=== PATIENT | female | born 2000 | race Hispanic/Latino ===

== ENCOUNTER 2024-02-11 19:53 | Emergency (ER) | payer OTHER, SELFPAY ==
[2024-02-11 20:03] VITALS: BP 141/72; PULSE 84; RESP 16; TEMP 36.9; O2SAT 98; BMI 23.6
[2024-02-11 20:53] LABS: Bacteria Urine Few (2-10); Culture Indicated Urine Specimen Cultured; RBC Urine 1-5/HPF (0-5/HPF); Squamous Epithelial Cell Urine 0-1 /HPF (0-5/HPF); Urine Volume 10mL (spun); WBC Urine 1-5/HPF (0-5/HPF)
[2024-02-11 21:17] LABS: Pregnancy Test Urine Negative (Negative)
--- NOTE | 2024-02-11 22:33 | ED.GENADULT ---
HPI - General Adult General Chief complaint: Urogenital-Female Stated complaint: pain/burning with urination, diarrhea Time Seen by Provider: 02/11/24 20:18 Source: patient Mode of arrival: Ambulatory History of Present Illness HPI narrative: Patient is a 23-year-old female he was here for evaluation of less than 24 hours of urinary frequency, urgency and pain and burning. She also reports diarrhea. No fevers. No vaginal bleeding. No recent travel. No vomiting. Related Data Previous Rx's Medication Instructions Recorded nitrofurantoin 100 mg PO Q12H 5 days #10 caps 02/11/24 monohydrate/macrocrystals 100 mg capsule (Macrobid) phenazopyridine 100 mg tablet 100 mg PO TID PRN pain 6 doses #6 02/11/24 (Pyridium) tabs Allergies Allergy/AdvReac Type Severity Reaction Status Date / Time No Known Drug Allergies Allergy Verified 02/11/24 20:03 Review of Systems Review of Systems Narrative: See HPI Patient History Social History Smoking Status: Never smoker Smoking Status: Never smoker alcohol intake frequency: holidays/special occasions only Substance Use Type: does not use Exam Initial Vital Signs Initial Vital Signs: Vital Signs Temperature 98.4 F 02/11/24 20:03 Pulse Rate 84 02/11/24 20:03 Respiratory Rate 16 02/11/24 20:03 Blood Pressure 141/72 H 02/11/24 20:03 Pulse Oximetry 98 02/11/24 20:03 Oxygen Delivery Method Room Air 02/11/24 20:03 HENMT Head: normal to inspection and normocephalic Resp Effort & Inspection: normal respiratory effort Cardio Rate: regular rate Skin General: no rashes or lesions noted Neuro General: patient alert, patient awake and moves all extremities Extrem General: capillary refill normal Course Orders Ordered: ED Orders 02/11/24 20:10 Urine Microscopic Stat 02/11/24 20:53 Test Urine Stat Discontinued Medications Nitrofurantoin Macrocrystals (Nitrofurantoin Er 100 Mg Capsule) 100 mg PO NOW ONE Stop: 02/11/24 22:34 Last Admin: 02/11/24 22:36 Dose: 100 mg Documented By: JOHN Phenazopyridine HCl (Phenazopyridine 100 Mg Tablet) 100 mg PO NOW ONE Stop: 02/11/24 22:34 Last Admin: 02/11/24 22:36 Dose: 100 mg Documented By: JOHN Vital Signs Vital signs: Vital Signs - 8 hr 02/11/24 20:03 Temperature 98.4 F Pulse Rate 84 Respiratory Rate 16 Blood Pressure 141/72 H Pulse Oximetry 98 Oxygen Delivery Method Room Air Medical Decision Making Lab Data Lab results reviewed: Yes I reviewed the patient's lab results. Labs: Lab Results 02/11/24 Range/Units 20:10 Urine RBC 1-5/hpf (0-5/HPF) Urine WBC 1-5/hpf (0-5/HPF) Ur Squamous Epith Cells 0-1 /hpf (0-5/HPF) Urine Bacteria Few (2-10) H (None) Ur Culture Indicated? Specimen cultured Vol Urine Centrifuged 10ml (spun) Urine Test Negative (Negative) Urine Dip Bedside Urine Glucose Negative Bedside Urine Bilirubin - Negative Bedside Urine Ketone - Negative Urine Specific [place] 1 Bedside Urine Occult Blood +++ Bedside Urine pH 7 Bedside Urine Protein - Negative Bedside Urine Urobilinogen - Negative Bedside Urine Nitrite - Negative Bedside Urine Leukocytes ++ 125 Esterase Point of care testing: Urine Dip Bedside Urine Glucose Negative Bedside Urine Bilirubin - Negative Bedside Urine Ketone - Negative Urine Specific [place] 1 Bedside Urine Occult Blood +++ Bedside Urine pH 7 Bedside Urine Protein - Negative Bedside Urine Urobilinogen - Negative Bedside Urine Nitrite - Negative Bedside Urine Leukocytes ++ 125 Esterase MDM Narrative Medical decision making narrative: History and physical exam are consistent with a urinary tract infection. Low suspicion for pyelonephritis. Tolerating oral intake. Afebrile. Benign exam. Patient was given 1st dose of antibiotics here in the emergency department and a prescription was sent to pharmacy of her choice. She was given return precautions. She expressed understanding and agreement with plan. Discharge Plan Departure Patient Disposition: Home Clinical Impression: Urinary tract infection Instructions: DI for Urinary Tract Infection (UTI) Activity Restrictions/Additional Instructions: a prescription for antibiotics was sent to the pharmacy of your choice. Please start taking it as directed. There was a urine culture pending at the time of your discharge and we will contact you if we need to change antibiotics based on this. Return to the emergency department for new or worsening symptoms. Prescriptions: New nitrofurantoin monohyd/m-cryst [Macrobid] 100 mg capsule 100 mg PO Q12H 5 Days Qty: 10 0RF Rx Instructions: must administer with a meal/food phenazopyridine [Pyridium] 100 mg tablet 100 mg PO TID PRN (Reason: pain) Qty: 6 0RF Stand Alone Forms: Patient Portal/API
[2024-02-11] MEDS: NITROFURANTOIN ER 100 MG CAPSULE PO (22:36)
[2024-02-11] MEDS: PHENAZOPYRIDINE 100 MG TABLET PO (22:36)
== END 2024-02-11 22:39 | disposition home or self-care (01) ==
PROVIDERS: Emergency Provider Emergency Medicine
DX: N39.0 Urinary tract infection, site not specified (principal)
CPT/HCPCS: 81003; 81015; 81025; 87077; 87086; 87186; 99283

== ENCOUNTER 2024-05-27 17:25 | Emergency (ER) | payer OTHER, SELFPAY ==
[2024-05-27 17:37] VITALS: BP 106/68; PULSE 87; RESP 16; TEMP 36.8; O2SAT 99; BMI 23.2
--- NOTE | 2024-05-27 18:13 | ED.SKABFB ---
HPI - Skin/Abscess/Foreign Bdy General Chief complaint: Skin/Abscess/Foreign Body Stated complaint: weeping rash on face Time Seen by Provider: 05/27/24 17:56 Source: patient Mode of arrival: Ambulatory History of Present Illness HPI narrative: Patient is a 23-year-old female who is here for evaluation of a rash located on her upper lip been in front of her left ear. She does have a history of eczema. She has not had an ex mild break in quite some time. She states this feels different from her prior eczema but she has been using cortisone cream without any improvement. She also reports some blistering on her fingers. No problems breathing. Related Data Previous Rx's Medication Instructions Recorded phenazopyridine 100 mg tablet 100 mg PO TID PRN pain 6 doses #6 02/11/24 (Pyridium) tabs cephalexin 500 mg capsule 500 mg PO QID 5 days #20 caps 05/27/24 Allergies Allergy/AdvReac Type Severity Reaction Status Date / Time No Known Drug Allergies Allergy Verified 02/11/24 20:03 Review of Systems Review of Systems Narrative: See HPI Patient History Social History Smoking Status: Never smoker Smoking Status: Never smoker alcohol intake frequency: holidays/special occasions only Exam Initial Vital Signs Initial Vital Signs: Vital Signs Temperature 98.3 F 05/27/24 17:37 Pulse Rate 87 05/27/24 17:37 Respiratory Rate 16 05/27/24 17:37 Blood Pressure 106/68 05/27/24 17:37 Pulse Oximetry 99 05/27/24 17:37 Oxygen Delivery Method Room Air 05/27/24 17:37 HENMT Ears: TM normal on the right, TM normal on the left and EAC's normal Mouth: oral mucosae normal and moist mucous membranes Skin Other: Patient does have what appears to be a rash on her upper lip and in front of her left ear. No vesicles. Low suspicion for zoster. Does have surrounding erythema. No pustules. Course Vital Signs Vital signs: Vital Signs - 8 hr 05/27/24 17:37 05/27/24 18:21 Temperature 98.3 F Pulse Rate 87 Respiratory Rate 16 16 Blood Pressure 106/68 Pulse Oximetry 99 Oxygen Delivery Method Room Air MDM - Skin/Abscess/Foreign Bdy MDM Narrative Medical decision making narrative: Based on her exam today I have low suspicion that this is zoster. Low suspicion that this is eczema. Most likely topical infection. She will stop using the hydrocortisone. I recommended that she try topical antibiotic ointments such as Neosporin or bacitracin. She was given a prescription for Keflex however she was going to hold on filling this medicine for the next 48 hours. If her symptoms are not improving or if they are worsening during this time that she will fill the prescription and start taking as directed. She was given return precautions. She expressed understanding and agreement with plan. Discharge Plan Departure Patient Disposition: Home Clinical Impression: Cellulitis Instructions: DI for Cellulitis -- Adult Activity Restrictions/Additional Instructions: I would stop using the hydrocortisone cream and start using a topical antibiotic ointment such as bacitracin or Neosporin. This can be purchased [id number]. If over the next 48 hours your symptoms are not improving then start taking the oral antibiotics you were given a prescription for today as directed. Return to the emergency department for new symptoms. Prescriptions: New cephalexin 500 mg capsule 500 mg PO QID 5 Days Qty: 20 0RF No Action phenazopyridine [Pyridium] 100 mg tablet 100 mg PO TID PRN (Reason: pain) Qty: 6 0RF Stand Alone Forms: Patient Portal/API/Survey
--- NOTE | 2024-05-27 18:20 | PC.NURSE ---
weeping to upper lip. no lip swelling or oral swelling. pt states she has hx of eczema. Reported she has not had an outbreak like this before.
[2024-05-27 18:21] VITALS: RESP 16
== END 2024-05-27 18:22 | disposition home or self-care (01) ==
PROVIDERS: Emergency Provider Emergency Medicine
DX: K13.0 Diseases of lips (principal); H60.12 Cellulitis of left external ear
CPT/HCPCS: 99281

== ENCOUNTER 2024-10-04 16:54 | Emergency (ER) | payer OTHER, SELFPAY ==
[2024-10-04] VITALS (11 sets, daily range): BP systolic 102–143; BP diastolic 56–85; PULSE 79–100; RESP 16–19; TEMP 37.1; O2SAT 98–100; BMI 23.4
[2024-10-04 17:52] LABS: Add Manual Diff / Slide Review NO; Basophils Absolute Auto 0 /uL (0-100); Basophils Percent Auto 0.9 % (0-2); Eosinophils Absolute Auto 0 /uL (0-450); Eosinophils Percent Auto 0.9 % (2-4); Hematocrit 38.6 % (36-46); Hemoglobin 12.6 g/dL (12.0-16.0); Lymphocytes Absolute Auto 1600 /uL (1100-4500); Lymphocytes Percent Auto 29.8 % (25-40); Mean Corpuscular HGB Conc 32.6 % (30-36); Mean Corpuscular Hemoglobin 27.6 PG (26-34); Mean Corpuscular Volume 84.6 fL (80-100); Monocytes Absolute Auto 500 /uL (0-900); Monocytes Percent Auto 8.2 % (3-14); Neutrophils Absolute Auto 3300 /uL (1500-7000); Neutrophils Percent Auto 60.2 % (50-75); Platelet Count 179 X10^3/uL (150-400); Red Blood Cell Count 4.57 X10^6/uL (4.0-5.2); Red Cell Distribution Width 14.7 % (11.6-14.8); White Blood Cell Count 5.5 X10^3/uL (4.5-11.0)
[2024-10-04 18:02] LABS: Alanine Aminotransferase 18 IU/L (<35); Albumin 4.3 g/dL (3.5-5.0); Albumin Globulin Ratio 1.3 (1.0-2.8); Alkaline Phosphatase 42 U/L (38-126); Aspartate Aminotransferase 34 IU/L (14-36); BUN Creatinine Ratio 13.6 (6-22); Bilirubin Total 0.5 mg/dL (0.2-1.3); Blood Urea Nitrogen 8 mg/dL (7-17); Calcium 9.1 mg/dL (8.4-10.2); Carbon Dioxide 24 mmol/L (22-32); Chloride 104 mmol/L (98-107); Estimated Glomerular Filt Rate > 60 mL/min (>60); Globulin 3.3 g/dL (1.7-4.1); Glucose 87 mg/dL (70-99); HEMOLYSIS 36 (0-50); Lipase 143 U/L (23-300); Potassium 3.7 mmol/L (3.4-5.1); Sodium 135 mmol/L (137-145); Total Protein 7.6 g/dL (6.3-8.2)
--- NOTE | 2024-10-04 19:31 | ED_ITS ---
HPI - Abdominal Pain General Chief Complaint: Abdominal Pain Stated Complaint: thinks appendicitis Time Seen by Provider: 10/04/24 19:28 Source: patient Mode of arrival: Family Vehicle History of Present Illness HPI narrative: 24-year-old female presents with right lower quadrant pain and nausea 3 hours ago prior to her arrival. Last menstrual period was 3 4 weeks ago. Last ate tacos earlier today. Last bowel movement was normal few hours ago with no diarrhea or constipation. Denies any UTI symptoms or back pain or vaginal discharge. Patient concerned she may have appendicitis came in to be evaluated. Other than what is stated 14 point review of system is negative. Related Data Previous Rx's Medication Instructions Recorded phenazopyridine 100 mg tablet 100 mg PO TID PRN pain 6 doses #6 02/11/24 (Pyridium) tabs Allergies Allergy/AdvReac Type Severity Reaction Status Date / Time No Known Drug Allergies Allergy Verified 10/04/24 17:13 Review of Systems Review of Systems ROS Unobtainable: All systems reviewed & are unremarkable except as noted in HPI and below Patient History Social History Smoking Status: Never smoker Smoking Status: Never smoker alcohol intake frequency: holidays/special occasions only Exam Narrative Exam Narrative: GENERAL: [24] year old patient appears stated age. Well-developed patient, in mild distress. HEAD: Atraumatic. Normocephalic. EYES: Pupils equal round and reactive. Extraocular motions intact. No scleral icterus. No injection or drainage. ENT: Nose without bleeding, purulent drainage. Throat without erythema, tonsillar hypertrophy or exudate. Airway patent. NECK: Trachea midline. Non tender CARDIOVASCULAR: Regular rate and rhythm without murmurs, gallops, or rubs. RESPIRATORY: Clear to auscultation. Breath sounds equal bilaterally. No wheezes, rales, or rhonchi. GASTROINTESTINAL: Abdomen soft, non-tender, nondistended. EXTREMITIES: No edema or joint tenderness. BACK: Nontender without deformity or crepitance. No flank tenderness. NEURO: AOx3. SKIN: No rash or erythema of visible areas Initial Vital Signs Initial Vital Signs: Vital Signs Temperature 98.7 F 10/04/24 17:09 Pulse Rate 94 H 10/04/24 17:09 Respiratory Rate 16 10/04/24 17:09 Blood Pressure 143/85 H 10/04/24 17:09 Pulse Oximetry 99 10/04/24 17:09 Oxygen Delivery Method Room Air 10/04/24 17:09 Course Orders Ordered: ED Orders 10/04/24 17:40 Complete Blood Count AUTO DIFF Stat Comprehensive Metabolic Panel Stat Lipase Stat 10/04/24 19:31 CT abdomen pelvis w con Stat Ondansetron HCl (Ondansetron 4 Mg/2 Ml Inj) 4 mg IV NOW PRN PRN Reason: Nausea And Vomiting Ondansetron HCl (Ondansetron 4 Mg Odt) 4 mg PO NOW PRN PRN Reason: Nausea And Vomiting Vital Signs Vital signs: Vital Signs - 8 hr 10/04/24 17:09 10/04/24 18:43 10/04/24 19:00 Temperature 98.7 F Pulse Rate 94 H 87 83 Respiratory Rate 16 19 18 Blood Pressure 143/85 H 105/64 105/65 Pulse Oximetry 99 100 99 Oxygen Delivery Method Room Air Room Air Room Air 10/04/24 19:30 10/04/24 19:50 10/04/24 20:00 Temperature Pulse Rate 100 H 90 84 Respiratory Rate 18 18 Blood Pressure 114/73 123/56 L Pulse Oximetry 99 99 100 Oxygen Delivery Method Room Air Room Air 10/04/24 20:00 10/04/24 20:30 10/04/24 20:33 Temperature Pulse Rate 86 84 Respiratory Rate 18 18 Blood Pressure 108/56 L Pulse Oximetry 99 99 Oxygen Delivery Method 10/04/24 20:33 Temperature Pulse Rate Respiratory Rate Blood Pressure 107/61 Pulse Oximetry Oxygen Delivery Method MDM - Abdominal Pain Lab Data 10/04/24 17:40 10/04/24 17:40 Labs: Lab Results 10/04/24 Range/Units 17:40 WBC 5.5 (4.5-11.0) X10^3/uL RBC 4.57 (4.0-5.2) X10^6/uL Hgb 12.6 (12.0-16.0) g/dL Hct 38.6 (36-46) % MCV 84.6 (80-100) fL MCH 27.6 (26-34) PG MCHC 32.6 (30-36) % RDW 14.7 (11.6-14.8) % Plt Count 179 (150-400) X10^3/uL Neut % (Auto) 60.2 (50-75) % Lymph % (Auto) 29.8 (25-40) % [place] % (Auto) 8.2 (3-14) % Eos % (Auto) 0.9 L (2-4) % Baso % (Auto) 0.9 (0-2) % Neut # (Auto) 3300 (1510-5892) /uL Lymph # (Auto) 1600 (9082-5876) /uL [place] # (Auto) 500 (0-900) /uL Eos # (Auto) 0 (0-450) /uL Baso # (Auto) 0 (0-100) /uL Sodium 135 L (137-145) mmol/L Potassium 3.7 (3.4-5.1) mmol/L Chloride 104 (98-107) mmol/L Carbon Dioxide 24 (22-32) mmol/L BUN 8 (7-17) mg/dL Creatinine 0.59 (0.52-1.04) mg/dL Estimated GFR > 60 (>60) mL/min BUN/Creatinine Ratio 13.6 (6-22) Glucose 87 (70-99) mg/dL Calcium 9.1 (8.4-10.2) mg/dL Total Bilirubin 0.5 (0.2-1.3) mg/dL AST 34 (14-36) IU/L ALT 18 (<35) IU/L Alkaline Phosphatase 42 (38-126) U/L Total Protein 7.6 (6.3-8.2) g/dL Albumin 4.3 (3.5-5.0) g/dL Globulin 3.3 (1.7-4.1) g/dL Albumin/Globulin Ratio 1.3 (1.0-2.8) Lipase 143 (23-300) U/L Point of care testing: Point of Care Testing Test Results Negative Urine Dip Bedside Urine Glucose Negative Bedside Urine Bilirubin - Negative Bedside Urine Ketone - Negative Urine Specific [place] 1.005 Bedside Urine Occult Blood - Negative Bedside Urine pH 6.0 Bedside Urine Protein - Negative Bedside Urine Urobilinogen - Negative Bedside Urine Nitrite - Negative Bedside Urine Leukocytes - Negative Esterase Imaging Data CT scan - abdomen/pelvis: Radiologist's Impression: [address] [address] [address] Scan Report Signed Patient: Kristen Chanel MR#: [id number] : 2000 Acct:[id number] Age/Sex: 24 / F Date of Service: 10/04/24 Loc: ED Accession Number: [id number] Procedure: CT abdomen pelvis w con Ordering Provider: Paramjit Christensen D.O. PROCEDURE: CT ABDOMEN PELVIS W CON INDICATIONS: RLQ pain/nausea TECHNIQUE: After the administration of intravenous contrast, axial sections acquired from the lung bases to the pubic symphysis. Coronal and sagittal reformats were performed. For radiation dose reduction, the following was used: automated exposure control, adjustment of mA and/or kV according to patient size. COMPARISON: None. FINDINGS: Image quality: Diagnostic. Lower Chest: No significant findings. ABDOMEN: Liver: Nodular peripheral enhancing lesion in the right hepatic lobe measuring 2.1 x 2.3 cm (08/04) favored to represent hemangioma. Additional subcentimeter hypodensities are too small to characterize, probable cysts versus hemangiomas. Gallbladder: No radiopaque gallstones or wall thickening. Biliary ducts: No biliary dilation. Pancreas: No ductal dilation. Spleen: Size is within normal limits. Adrenal Glands: No adrenal nodules. Kidneys and Ureters: No hydronephrosis. No solid mass. No complex renal cystic lesion which requires follow up. Stomach and Bowel: Normal colonic caliber, without significant wall thickening. Normal caliber appendix. Peritoneum: No abnormal intraperitoneal fluid. No free air. Ventral Wall: No significant ventral hernia. Abdominal Nodes: No retroperitoneal or mesenteric adenopathy by size criteria. Vessels: Aorta and inferior vena cava are normal in size. PELVIS: Pelvic Organs: Unremarkable. Bladder: No bladder wall thickening, accounting for underdistention. Pelvic Nodes: No enlarged lymph nodes. Miscellaneous: No inguinal hernias are seen. Bones: No aggressive osseous abnormality. IMPRESSION: No acute abdominopelvic process. Normal caliber appendix. Peripherally nodular enhancing lesion in the right hepatic lobe measuring 2.3 cm favored to represent hemangioma. MDM Narrative Medical decision making narrative: All lab work, vital signs, nurse triage note, medication list, CT scan and all previous ER visits reviewed. Differential diagnosis includes cholecystitis appendicitis pancreatitis kidney stone kidney infection UTI. Patient will follow up with PCP in 1-2 weeks regarding hemangioma. Discharge Plan Departure Patient Disposition: Home Clinical Impression: Abdominal pain, RLQ, Hepatic hemangioma Instructions: Acute Abdominal Pain Activity Restrictions/Additional Instructions: Return with new or worsening symptoms. Follow up with PCP in 1-[address] scan findings. Prescriptions: No Action phenazopyridine [Pyridium] 100 mg tablet 100 mg PO TID PRN (Reason: pain) Qty: 6 0RF Stand Alone Forms: Patient Portal/API/Survey
== END 2024-10-04 22:10 | disposition home or self-care (01) ==
PROVIDERS: Emergency Medicine; Emergency Provider Family Medicine
DX: R10.31 Right lower quadrant pain (principal); D18.03 Hemangioma of intra-abdominal structures
CPT/HCPCS: 74177; 80053; 81003; 81025; 83690; 85025; 99282; 99284; Q9967

== ENCOUNTER → 2025-02-18 15:17 | Outpatient (CLI) | payer OTHER, SELFPAY | PROVIDERS: Visit Provider Physician Assistant | DX: R30.0 Dysuria (principal); N94.89 Other specified conditions associated with female genital organs and menstrual cycle | CPT/HCPCS: 87086; 87210 ==

== ENCOUNTER 2025-03-12 01:58 | Emergency (ER) | payer OTHER, SELFPAY ==
[2025-03-12 02:10] VITALS: BP 131/73; PULSE 94; RESP 16; TEMP 36.6; O2SAT 99; BMI 21.6
--- NOTE | 2025-03-12 02:19 | ED.FEMALEGU ---
HPI - Female Genitourinary General Chief complaint: Urogenital-Female Stated complaint: Abdominal pain, Urinary Symptoms Time Seen by Provider: 03/12/25 02:14 Source: patient Mode of arrival: Ambulatory History of Present Illness HPI Narrative: 24-year-old female comes in with dysuria and urinary frequency that started in the a.m. and progressively got worse. Patient denies any pelvic pain, no fever, no chills. Patient has not noticed any hematuria and no other symptoms. Related Data Home Medications ?Medication ?Instructions ?Recorded ?Confirmed norethindrone 1 mg-ethinyl 1 tab PO DAILY 02/18/25 02/18/25 estradiol 35 mcg tablet (Nylia) Previous Rx's ?Medication ?Instructions ?Recorded nitrofurantoin 100 mg PO Q12H 5 days #10 caps 03/12/25 monohydrate/macrocrystals 100 mg capsule (Macrobid) phenazopyridine 200 mg tablet 200 mg PO TID 5 doses #5 tabs 03/12/25 (Pyridium) Allergies Allergy/AdvReac Type Severity Reaction Status Date / Time No Known Drug Allergies Allergy Verified 03/12/25 02:09 Review of Systems Review of Systems ROS Unobtainable: All systems reviewed & are unremarkable except as noted in HPI and below Exam Narrative Exam Narrative: General: Patient appears to be in no acute distress, acting appropriately Head: normocephalic, atraumatic, HEENT: Pupils equal round reactive, eyes tracking well, neck supple, no JVD Heart: regular rate and rhythm, no murmurs, rubs, or gallops heard Lungs: clear to auscultation, no adventitious sounds Abdomen: soft , nontender, nondistended, positive bowel sounds Neurological: no focal neurological signs, moving all extremities well, alert and oriented x3, Psych: good judgment ,good insight, mood is normal. vaginal exam: done with nurse clinical liaison, no unusual lesions or abscess seen. No drainage seen. Essentially normal vaginal exam Initial Vital Signs Initial Vital Signs: Vital Signs Temperature 97.8 F 03/12/25 02:10 Pulse Rate 94 H 03/12/25 02:10 Respiratory Rate 16 03/12/25 02:10 Blood Pressure 131/73 03/12/25 02:10 Pulse Oximetry 99 03/12/25 02:10 Oxygen Delivery Method Room Air 03/12/25 02:10 Course Orders Ordered: ED Orders 03/12/25 02:05 Urinalysis and Microscopic Stat Urine Culture Stat 03/12/25 02:41 Genital Culture Stat Wet Prep Tric BV Aleyda Stat Discontinued Medications Nitrofurantoin Macrocrystals (Nitrofurantoin Er 100 Mg Capsule) 100 mg PO NOW ONE Stop: 03/12/25 02:50 Last Admin: 03/12/25 02:59 Dose: 100 mg Documented By: SBF Phenazopyridine HCl (Phenazopyridine 100 Mg Tablet) 200 mg PO NOW ONE Stop: 03/12/25 02:53 Last Admin: 03/12/25 02:59 Dose: 200 mg Documented By: SBF Vital Signs Vital signs: Vital Signs - 8 hr 03/12/25 02:10 Temperature 97.8 F Pulse Rate 94 H Respiratory Rate 16 Blood Pressure 131/73 Pulse Oximetry 99 Oxygen Delivery Method Room Air MDM - Female Genitourinary Lab Data Labs: Lab Results 03/12/25 Range/Units 02:05 Urine Color Other Urine Appearance Sl cloudy Urine pH 6.5 (4.5-8.0) Ur Specific [place] 1.020 (1.000-1.035) Urine Protein 2+ H (Negative) Urine Glucose (UA) Negative (Negative) g/dL Urine Ketones Negative (NEGATIVE) Urine Occult Blood 3+ H (Negative) Urine Nitrate Negative (Negative) Urine Bilirubin Negative (NEGATIVE) Urine Urobilinogen 0.2 (0.2) E.U./dL Ur Leukocyte Esterase 1+ H (NEGATIVE) Urine RBC >100/hpf H (0-5/HPF) Urine WBC 10-30/hpf H (0-5/HPF) Ur Squamous Epith Cells 0-1 /hpf (0-5/HPF) Urine Bacteria Few (2-10) H (None) Ur Culture Indicated? Specimen cultured Vol Urine Centrifuged Low vol <10ml (spun) A MDM Narrative Medical decision making narrative: 24-year-old female who presents with dysuria and urinary frequency and found to have an acute cystitis with hematuria picture. Patient given a Macrobid 100 mg p.o. dose now it will be sent home for completion of the antibiotic twice a day x5 days. Patient also given some Pyridium for symptomatic relief. Culture was also taken to rule out any fungal or bacterial cause and we will also send a culture out for gonorrhea and chlamydia although the patient claims that she only has 1 partner which is her . Discharge Plan Departure Patient Disposition: Home Clinical Impression: Urinary tract infection Qualifiers: Urinary tract infection type: acute cystitis Hematuria presence: with hematuria Qualified Code(s): N30.01 - Acute cystitis with hematuria Instructions: DI for Urinary Tract Infection (UTI) Activity Restrictions/Additional Instructions: Take meds as prescribed. Hydrate well. Follow up if symptoms do not improve in the next day or 2. Prescriptions: New nitrofurantoin monohyd/m-cryst [Macrobid] 100 mg capsule 100 mg PO Q12H 5 Days Qty: 10 0RF Rx Instructions: must administer with a meal/food phenazopyridine [Pyridium] 200 mg tablet 200 mg PO TID Qty: 5 0RF No Action Nylia () 1-35 mg-mcg tablet 1 tab PO DAILY Referrals: Miscellaneous,Doctor, [Primary Care Provider, Medical] Stand Alone Forms: Patient Portal/API
[2025-03-12 02:21] LABS: Appearance Urine UA SL CLOUDY; Bilirubin Urine UA NEGATIVE (NEGATIVE); Glucose Urine UA NEGATIVE (Negative); Ketones Urine UA NEGATIVE (NEGATIVE); Leukocyte Esterase Urine UA 1+ (NEGATIVE); Nitrite Urine UA NEGATIVE (Negative); Occult Blood Urine UA 3+ (Negative); Protein Urine UA 2+ (Negative); Specific Gravity Urine UA 1.020 (1.000-1.035); Urobilinogen Urine UA 0.2 E.U./dL (0.2)
[2025-03-12 02:22] LABS: Color Urine UA OTHER; pH Urine UA 6.5 (4.5-8.0)
[2025-03-12 02:24] LABS: Culture Indicated Urine Specimen Cultured
--- NOTE | 2025-03-12 02:46 | PC.NURSE ---
pt having dysuria. also reporting her vagina feels uncomfortable. rn chaperones provider exam. pt tolerated well
[2025-03-12] MEDS: PHENAZOPYRIDINE 100 MG TABLET 200 MG PO (02:59)
[2025-03-12] MEDS: NITROFURANTOIN ER 100 MG CAPSULE PO (02:59)
== END 2025-03-12 03:05 | disposition home or self-care (01) ==
PROVIDERS: Emergency Provider Family Medicine
DX: N30.01 Acute cystitis with hematuria (principal)
CPT/HCPCS: 81001; 87070; 87077; 87086; 87186; 87205; 87210; 99283